=== PATIENT | female | born 1990 | race Caucasian/White ===

== ENCOUNTER 2023-02-23 06:41 | Emergency (ER) | payer MEDICAID ==
[2023-02-23 07:26] VITALS: BP 139/96; O2SAT 97
[2023-02-23 07:38] LABS: BILIRUBIN,URINE NEGATIVE (NEGATIVE); GLUCOSE, URINE (UA) NEGATIVE (NEGATIVE); KETONES,URINE (UA) TRACE mg/dL (NEGATIVE)
[2023-02-23 07:39] LABS: CLARITY,URINE CLOUDY (CLEAR)
[2023-02-23 07:40] LABS: HCG UR QUAL NEGATIVE
[2023-02-23 07:48] LABS: BACTERIA,URINE Few /HPF (None Seen); RBC,URINE TNTC /HPF (0-5); SQUAMOUS EPITHELIAL CELL,UR RARE Squamous (<= Few)
--- NOTE | 2023-02-23 07:59 | ED Physician Documentation ---
History of Present Illness - Stated complaint Stated Complaint: FEMALE - Chief complaint Chief Complaint: General - History obtained from History obtained from: Patient - Additonal information Additional information: Patient is a 32-year-old female with a history of hypertension presenting for evaluation of urinary frequency and urgency for the past 5 days. Patient states she recently traveled to [place] to see her whom she has not seen for the past 2 years. She has been taking Azo without any improvement in her symptoms. Denies fever, nausea, vomiting, vaginal discharge. She is on her menstrual cycle. She would like STD testing as she states she does not trust her . Patient states she is supposed to be on lisinopril but it gives her cough so she has not been taking it. She states that she has been having difficulty in getting touch with her primary care provider regarding alternative medications. Review of Systems Constitutional: denies: Fever Cardiac: denies: Chest pain / pressure Respiratory: denies: Dyspnea GI: denies: Abdominal Pain : reports: Frequency. 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 - Present Medications Home Medications: Ambulatory Orders Medication Instructions Recorded Confirmed Nitrofurantoin [Macrobid] 1 cap PO BID #10 cap 02/23/23 - Allergies Allergies/Adverse Reactions: Allergies Allergy/AdvReac Type Severity Reaction Status Date / Time No Known Drug Allergies Allergy Verified 02/23/23 07:16 - Social History Does the pt smoke?: No Smoking Status: Current some day smoker Does the pt drink ETOH?: Yes Does the pt have substance abuse?: No - Immunizations Immunizations are current?: Yes - POLST Patient has POLST: No PD ED PE NORMAL - General General: Alert and oriented X 3, No acute distress, Well developed/nourished - HEENT HEENT: Atraumatic - Neck Neck: Supple, no meningeal sign - Cardiac Cardiac: RRR - Respiratory Respiratory: No respiratory distress, Clear bilaterally - Abdomen Abdomen: Normal bowel sounds, Soft, Non tender, Non distended - Derm Derm: Warm and dry - Neuro Neuro: Normal speech Results - Vitals Vitals: Vital Signs - 24 hr 02/23/23 07:13 Temperature 36.7 C Heart Rate 78 Respiratory 18 Rate Blood Pressure 139/96 H O2 Saturation 97 Oxygen O2 Source Room air - Labs Labs: Laboratory Tests 02/23/23 07:27 Urine Color ORANGE Urine Clarity CLOUDY Urine pH 5.0 Ur Specific [place] 1.025 Urine Protein Urine Glucose (UA) NEGATIVE Urine Ketones TRACE Urine Occult Blood Urine Nitrite Urine Bilirubin NEGATIVE Urine Urobilinogen Ur Leukocyte Esterase Urine RBC TNTC H Urine WBC 11-25 H Ur Squamous Epith Cells RARE Squamous Urine Bacteria Few Ur Microscopic Review INDICATED Urine Culture Comments INDICATED Urine HCG, Qual NEGATIVE PD Medical Decision Making - ED course Complexity details: reviewed results ED course: Patient is a 32-year-old female presenting for evaluation of urinary frequency and urgency for the past 5 days. She has been taking Azo without improvement. Vital signs are stable. No vaginal discharge but patient would like testing for STDs. Abdominal exam is benign. No flank tenderness. Urinalysis interpretation is limited as patient is on Azo but she does have WBC and few bacteria present and given her symptoms would feel its appropriate to trial a course of antibiotics with pending culture. Patient counseled regarding treatment plan as well as concerning symptoms to return for. Departure - Departure Disposition: 01 Home, Self Care Clinical Impression: UTI (urinary tract infection) Condition: Stable Instructions: ED UTI Cystitis Female Prescriptions: Nitrofurantoin [Macrobid] 1 cap PO BID #10 cap Comments: I am sending a prescription for an antibiotic to help with your urine infection to [facility] in [place].We are also sending your urine for culture and we will notify you if you need a different antibiotic. We have also sent your urine for STD testing and will notify you of any abnormal results. I would recommend follow-up with a primary care provider to discuss alternative antihypertensive medications if you are not tolerating lisinopril. Return to the ER if you devel op any worsening symptoms such as fever, abnormal discharge or any other concerns. Forms: PCP List Discharge Date/Time: 02/23/23 08:40
[2023-02-23 10:46] LABS: CHLAMYDIA TRACHOMATIS DNA NEGATIVE (NEGATIVE); NEISSERIA GONORRHOEAE DNA NEGATIVE (NEGATIVE); TRICHOMONAS VAGINALIS DNA NEGATIVE (NEGATIVE)
== END 2023-02-23 08:40 | disposition home or self-care (01) ==
LOC: ED 06:41
DX: N39.0 Urinary tract infection, site not specified (principal); I10 Essential (primary) hypertension; Z20.2 Contact with and (suspected) exposure to infections with a predominantly sexual mode of transmission; F17.200 Nicotine dependence, unspecified, uncomplicated
CPT/HCPCS: 81001; 81003; 81025; 87086; 87491; 87591; 87661; 99282; 99283

== ENCOUNTER 2023-03-03 08:20 | Emergency (ER) | payer MEDICAID ==
[2023-03-03 09:16] LABS: BILIRUBIN,URINE NEGATIVE (NEGATIVE); GLUCOSE, URINE (UA) NEGATIVE (NEGATIVE); KETONES,URINE (UA) NEGATIVE (NEGATIVE); LEUKOCYTE ESTERASE, URINE SMALL (NEGATIVE); NITRITE,URINE POSITIVE (NEGATIVE); OCCULT BLOOD,URINE SMALL (NEGATIVE); PROTEIN,URINE TRACE mg/dL (NEGATIVE); UROBILINOGEN,URINE 1 (NORMAL) E.U./dL (NORMAL)
[2023-03-03] MEDS ORDERED: LIDOCAINE 1% 2 ML VIAL MC ONE (09:19)
[2023-03-03] MEDS ORDERED: cefTRIAXone 1 GM VIAL IM STA (09:19)
[2023-03-03 09:21] LABS: HCG UR QUAL NEGATIVE
[2023-03-03 09:25] LABS: CLARITY,URINE CLEAR (CLEAR)
[2023-03-03 09:26] LABS: BACTERIA,URINE Few /HPF (None Seen); RBC,URINE 0-5 /HPF (0-5); SQUAMOUS EPITHELIAL CELL,UR FEW Squamous (<= Few)
--- NOTE | 2023-03-03 09:26 | ED Physician Documentation ---
History of Present Illness - Stated complaint Stated Complaint: - Chief complaint Chief Complaint: UTI - History obtained from History obtained from: Patient - History of Present Illness Timing: How many weeks ago (1) Pain level max: 4 Pain level now: 4 - Additonal information Additional information: 32-year-old female with dysuria, urinary frequency. History of recurrent UTIs. Has a history of medullary sponge kidney. Patient is a 32-year-old female patient was recently treated for UTI with Macrobid. She states that that antibiotic traditionally has not worked well for her. She has some mild low back pain. No vaginal bleeding or discharge. No itching. She states that about a week ago she had STI testing performed. This was negative. No nausea or vomiting. Review of Systems Constitutional: denies: Fever, Chills GI: denies: Nausea, Vomiting, Diarrhea : reports: Dysuria, Frequency, Hesitancy. denies: Vaginal bleeding, Now EGA Skin: denies: Rash Musculoskeletal: denies: Neck pain, Back pain PD PAST MEDICAL HISTORY - Past Medical History Past Medical History: Yes Cardiovascular: Hypertension Respiratory: None Neuro: None Endocrine/Autoimmune: None GI: None PARAEDUCATOR: Other : None HEENT: None Psych: None Musculoskeletal: None, Osteoporosis Derm: None - Past Surgical History Past Surgical History: Yes General: Hiatal hernia repair /PARAEDUCATOR: section - Present Medications Home Medications: Ambulatory Orders Medication Instructions Recorded Confirmed Cefpodoxime Proxetil [Vantin] 100 mg PO Q12H #14 tablet 03/03/23 - Allergies Allergies/Adverse Reactions: Allergies Allergy/AdvReac Type Severity Reaction Status Date / Time No Known Drug Allergies Allergy Verified 03/03/23 08:37 - Social History Does the pt smoke?: No Smoking Status: Never smoker Does the pt drink ETOH?: Yes Does the pt have substance abuse?: No - Immunizations Immunizations are current?: Yes - POLST Patient has POLST: No PD ED PE NORMAL - Vitals Vital signs reviewed: Yes - General General: Alert and oriented X 3, No acute distress - HEENT HEENT: PERRL, Moist mucous membranes - Neck Neck: Supple, no meningeal sign - Cardiac Cardiac: RRR, Strong equal pulses - Respiratory Respiratory: No respiratory distress, Clear bilaterally - Abdomen Abdomen: Soft, Non tender, Non distended - Back Back: No CVA TTP, No spinal TTP - Derm Derm: Warm and dry - Neuro Neuro: Alert and oriented X 3 - Psych Psych: Normal mood, Normal affect Results - Vitals Vitals: Vital Signs - 24 hr 03/03/23 03/03/23 08:34 09:47 Temperature 36.5 C 36.4 C L Heart Rate 81 82 Respiratory 16 18 Rate Blood Pressure 149/106 H 132/93 H O2 Saturation 98 100 Oxygen O2 Source Room air - Labs Labs: Laboratory Tests 03/03/23 03/03/23 08:40 09:30 Urine Color ORANGE Urine Clarity CLEAR Urine pH 6.0 Ur Specific [place] <=1.005 Urine Protein TRACE Urine Glucose (UA) NEGATIVE Urine Ketones NEGATIVE Urine Occult Blood SMALL H Urine Nitrite POSITIVE H Urine Bilirubin NEGATIVE Urine Urobilinogen 1 (NORMAL) Ur Leukocyte Esterase SMALL H Urine RBC 0-5 Urine WBC 11-25 H Ur Squamous Epith Cells FEW Squamous Urine Bacteria Few Ur Microscopic Review INDICATED Urine Culture Comments INDICATED Urine HCG, Qual NEGATIVE C. glabrata (PCR) NEGATIVE C. krusei (PCR) NEGATIVE Caitlin species DNA NEGATIVE T. vaginalis (PCR) NEGATIVE Bact Vaginosis (PCR) NEGATIVE PD Medical Decision Making - ED course Complexity details: reviewed results, re-evaluated patient, considered differential, d/w patient ED course: We will treat the patient for a continued UTI. Given a dose of Rocephin. Plac ed on cefpodoxime for home. Bacterial vaginitis panel is negative. We will have her follow-up with her PCP for further care. No evidence of pyelonephritis. No evidence of sepsis. Patient counseled regarding signs and symptoms for which I believe and urgent re-evaluation would be necessary. Patient with good understanding of and agreement to plan and is comfortable going home at this time This document was made in part using voice recognition software. While efforts are made to proofread this document, sound alike and grammatical errors may occur. Departure - Departure Disposition: 01 Home, Self Care Clinical Impression: UTI (urinary tract infection) Qualifiers: Urinary tract infection type: acute cystitis Hematuria presence: without hematuria Qualified Code(s): N30.00 - Acute cystitis without hematuria Condition: Good Instructions: ED UTI Cystitis Female Follow-Up: Your,doctor in 1 week [Other] Prescriptions: Cefpodoxime Proxetil [Vantin] 100 mg PO Q12H #14 tablet Comments: Your prescription was sent to [facility] in [place]. Please take all antibiotics and gone. Please return if you worsen. I will call you later today if your results from the bacterial vaginitis swab are positive and further treatment is needed Discharge Date/Time: 03/03/23 09:47
[2023-03-03 09:51] VITALS: BP 132/93; O2SAT 100
[2023-03-03 11:33] LABS: BACTERIAL VAGINOSIS DNA NEGATIVE (NEGATIVE); CANDIDA GLABRATA DNA NEGATIVE (NEGATIVE); CANDIDA GROUP DNA NEGATIVE (NEGATIVE); CANDIDA KRUSEI DNA NEGATIVE (NEGATIVE); TRICHOMONAS VAGINALIS DNA NEGATIVE (NEGATIVE)
== END 2023-03-03 09:47 | disposition home or self-care (01) ==
LOC: ED 08:20
DX: N30.00 Acute cystitis without hematuria (principal)
CPT/HCPCS: 81001; 81003; 81025; 81514; 87086; 96372; 99283